=== PATIENT | female | born 1950 | race Caucasian/White ===

== ENCOUNTER 2017-09-13 10:00 | Day surgery (SDC) | payer MEDICARE ==
[~2017-09-13] VITALS: Ht 154.9 cm; Wt 81.0 kg
[~2017-09-13 10:00] MED LIST: BREO1INH3 INH; BUSP1TAB PO; CLON1TAB PO; CRES10TA32 PO; DEXI60CA2 PO; EPIP0.3I2 IM; FLUTISP; HYDR-3363 PO; LIDOCAINE 2% INJ 100 MG/5 ML SDV (FOR ANES.) As Ordered ONE; META48.54 PO; MIDAZOLAM INJ 2 MG/2 ML VIAL (J2250) As Ordered ONE; PAXI40TA10 PO; PERC7.5T11 PO; PROPOFOL 200 MG/20 ML VIAL As Ordered ONE; ROCURONIUM BROMIDE 50 MG/5 ML VIAL/SYRINGE As Ordered ONE; SUCCINYLCHOLINE 100 MG/5 ML SYRINGE (J0330) As Ordered ONE; VITA100067 PO; dexameTHASONE 4 MG/ML 1ML VIAL (J1100) As Ordered ONE; fentaNYL 250 MCG/5 ML INJECTION (J3010) As Ordered ONE
[2017-09-13] MEDS ORDERED: ePHEDrine SULFATE 25 MG/5 ML(5MG/ML) SYRINGE As Ordered ONE ×3 (10:01→14:51)
[2017-09-13] MEDS ORDERED: PHENYLephrine HCL 500 MCG/5 ML (100MCG/ML) SYRINGE (J2370) As Ordered ONE ×2 (10:01→14:56)
[2017-09-13] MEDS ORDERED: LR 1,000 ML IV ONE (10:15)
[2017-09-13] MEDS ORDERED: dexameTHASONE 4 MG/ML 1ML VIAL (J1100) IV ONE (10:15)
[2017-09-13] MEDS ORDERED: LIDOCAINE 1% MDV 20ML VIAL SC PRN (10:15)
[2017-09-13] MEDS ORDERED: GLYCOPYRROLATE INJ 0.2 MG/ML 2 ML VIAL As Ordered ONE ×2 (10:18→14:04)
[2017-09-13] MEDS ORDERED: EMLA CREAM 5GM (LIDOCAINE/PRILOCAINE) As Ordered ONE (10:31)
[2017-09-13] MEDS ORDERED: NICODIS2 TD (10:49)
[2017-09-13] MEDS ORDERED: BACITRACIN OINT 30GM As Ordered ONE (10:59)
[2017-09-13] MEDS ORDERED: LIDOCAINE W/EPINEPHRINE 1% 20ML VIAL As Ordered ONE (10:59)
[2017-09-13] MEDS ORDERED: PERCOCET 5MG/325MG TAB PO PRN ×3 (11:00→16:45)
[2017-09-13] MEDS ORDERED: IPRATROPIUM 0.5MG/ALBUTEROL 2.5MG INH SOL UD 3ML (DUONEB)(J7620) NEB ONE (11:00)
[2017-09-13] MEDS ORDERED: diazePAM 5 MG TAB PO PRN (12:15)
[2017-09-13] MEDS ORDERED: ONDANSETRON 4MG/2ML VIAL (J2405) As Ordered ONE (13:20)
[2017-09-13] MEDS ORDERED: NEOSTIGMINE 10 MG/10 ML VIAL (J2710) As Ordered ONE (14:04)
[2017-09-13] MEDS ORDERED: REMIFENTANIL 1MG 3ML VIAL As Ordered ONE (14:16)
[2017-09-13] MEDS ORDERED: ESMOLOL INJ 100MG/10ML VIAL As Ordered ONE (14:41)
[2017-09-13] MEDS ORDERED: HYDROmorphone HCL 2 MG/ML 1ML VIAL (J1170) As Ordered ONE (15:13)
[2017-09-13] MEDS ORDERED: LR 1,000 ML IV SCH (16:45)
[2017-09-13] MEDS ORDERED: MEPERIDINE INJ 25 MG/ML VIAL (J2175) IV PRN (16:45)
[2017-09-13] MEDS ORDERED: METOCLOPRAMIDE INJ 10MG/2ML VIAL (J2765) IV PRN (16:45)
[2017-09-13] MEDS ORDERED: ONDANSETRON 4MG/2ML VIAL (J2405) IV PRN (16:45)
[2017-09-13] MEDS ORDERED: fentaNYL 100 MCG/2 ML INJECTION (J3010) IV PRN (16:45)
[2017-09-13] MEDS: PERCOCET 5MG/325MG TAB PO PRN ×2 (19:02→21:07)
[2017-09-13] MEDS: ONDANSETRON 4MG/2ML VIAL (J2405) IV PRN (19:03)
[2017-09-13] MEDS: LR 1,000 ML IV SCH (19:03)
[2017-09-13] MEDS ORDERED: ROSUVASTATIN 10 MG TAB (CRESTOR) PO SCH (21:00)
[2017-09-13] MEDS ORDERED: NICOTINE 14 MG/24 HR TRANSDERMAL TD SCH (21:00)
[2017-09-13] MEDS ORDERED: clonazePAM 1 MG TAB PO SCH (21:00)
[2017-09-13 22:00] VITALS: BP 132/61
[2017-09-14] MEDS ORDERED: UNRESOLVED PATIENT OWN MED ORDER XX SCH (00:01)
[2017-09-14 00:12] VITALS: BP 159/72
[2017-09-14] MEDS: ONDANSETRON 4MG/2ML VIAL (J2405) IV PRN ×2 (00:33→08:44)
[2017-09-14 00:50] LABS: MEAN CORPUSCULAR HEMOGLOBIN 30.9 pg (27.0-33.0); MEAN CORPUSCULAR HGB CONC 34.3 g/dl (32.0-36.5); MEAN CORPUSCULAR VOLUME 90.3 fl (80.0-96.0); PLATELET COUNT, AUTOMATED 313 10^3/uL (150-450); RED CELL DISTRIBUTION WIDTH 14.5 % (11.5-14.5); WHITE BLOOD COUNT 12.2 10^3/uL (4.0-10.0)
[2017-09-14] MEDS ORDERED: METOCLOPRAMIDE INJ 10MG/2ML VIAL (J2765) IV PRN (01:00)
[2017-09-14] MEDS ORDERED: IPRATROPIUM 0.5MG/ALBUTEROL 2.5MG INH SOL UD 3ML (DUONEB)(J7620) NEB PRN (01:00)
[2017-09-14] MEDS ORDERED: PERCOCET 5MG/325MG TAB PO ONE (01:00)
--- NOTE | 2017-09-14 01:09 | CR.PDOC ---
[facility] Consultation Consultation DATE OF CONSULTATION: Sep 13, 2017 at 10:00 REFERRING PROVIDER: Jabier Reid M.D. ATTENDING PHYSICIAN: Dr. Joya of ENT REASON FOR CONSULTATION/CHIEF COMPLAINT: . Chest Pain HISTORY OF PRESENT ILLNESS: . 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 The hospitalist service was consulted for evaluation of the patient's chest pain. The patient describes her pain as sharp, 10 out of 10 in intensity, and on the left side of the chest. She does state that pressing on the chest wall does exacerbate her pain. She denies any complaints of shortness of breath or palpitations. I did speak to the patient's daughter at the bedside, who states that the patient has had chest pain like this in the past, which was at times attributed to her underlying anxiety. She has no history of coronary artery disease, and the patient's daughter said that she did have a stress test approximately 18 months ago which did not reveal any acute findings in the [place], [place] area. ALLERGIES: Please see below. HOME MEDICATIONS: Please see below. PAST MEDICAL HISTORY: As noted in HPI. SOCIAL HISTORY: Smoked 2+ PPD of Tobacco for 30+ years REVIEW OF SYSTEMS: 10 point review of systems negative unless otherwise specified in HPI. PHYSICAL EXAMINATION: VITAL SIGNS: Please see below. GENERAL APPEARANCE: . Awake, alert HEENT: . Patient's face covered with surgical dressing along the sides with the drain in place following recent surgery RESPIRATORY: . Clear to auscultation bilaterally CARDIOVASCULAR: . Normal rate, normal rhythm ABDOMEN: . Soft, nontender, nondistended EXTREMITIES: . No erythema or tenderness noted LABORATORY DATA: Please see below. 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 Ms. Coker will be followed by Dr. Reyes of the hospitalist service starting 09/14/17 @ 7am. Vital Signs/I&O Vital Signs Date Time Temp Pulse Resp B/P (MAP) Pulse Ox O2 Delivery O2 Flow Rate FiO2 09/14/17 01:00 18 Room Air 09/13/17 22:00 99.0 99 132/61 (84) 94 09/13/17 18:15 2 Laboratory Data Labs 24H Laboratory Tests 2 09/14/17 00:43: Nucleated Red Blood Cells % (auto) 0.0 CBC/BMP Laboratory Tests 09/14/17 00:43 Red Blood Count 4.01, Mean Corpuscular Volume 90.3, Mean Corpuscular Hemoglobin 30.9, Mean Corpuscular Hemoglobin Concent 34.3, Red Cell Distribution Width 14.5 Allergies Coded Allergies: Atorvastatin (Verified Allergy, Unknown, 09/10/17) Celecoxib (Verified Allergy, Unknown, 09/10/17) Ciprofloxacin (Verified Allergy, Unknown, 09/10/17) Codeine (Verified Allergy, Unknown, 09/10/17) Hydrocodone (Verified Allergy, Unknown, 09/10/17) Metronidazole (Verified Allergy, Unknown, 09/10/17) Morphine (Verified Allergy, Unknown, 09/10/17) Home Medications Scheduled (Epipen 2-Broderick) 0.3 Mg/0.3 Ml Inj, 0.3 MG IM PRN, (Reported) (Dexilant) 60 Mg Cap, PO DAILY, (Reported) Buspirone HCl (Buspirone HCl) 7.5 Mg Tab, 7.5 MG PO BID, (Reported) Clonazepam (Clonazepam) 1 Mg Tab, 0.5 MG PO BID, (Reported) Fluticasone/Vilanterol (Breo Ellipta 200-25 Mcg/INH) 1 Inh Inh, 1 PUFF INH DAILY , (Reported) Oxycodone/Acetaminophen (Percocet 7.5-325 mg) 1 Tab Tab, 1 TAB PO QID, (Reported ) Paroxetine Hydrochloride (Paxil) 40 Mg Tab, 40 MG PO DAILY, (Reported) Psyllium (Metamucil) 48.57 % Pow, 1 PKT PO DAILY, (Reported) Rosuvastatin (Crestor) 10 Mg Tab, 10 MG PO QHS, (Reported) Scheduled PRN Fluticasone Propionate (Fluticasone Propionate) 50 Mcg/Act Spr, NA PRN PRN for NASAL CONGESTION, (Reported) Hydroxyzine HCl (Hydroxyzine HCl) 25 Mg Tab, PO TIDP PRN for ANXIETY/AGITATION, (Reported) Nicotine (Nicotine Step 2) 14 Mg/24 Hr Dis, 14 MG TD DAILY PRN for ANXIETY/ AGITATION, (Reported) JABIER REID MD Sep 14, 2017 01:09
[2017-09-14 01:17] LABS: ANION GAP 6 MEQ/L (8-16); BLOOD UREA NITROGEN 9 MG/DL (7-18); CALCIUM LEVEL 9.1 MG/DL (8.8-10.2); CARBON DIOXIDE LEVEL 28 MEQ/L (21-32); CHLORIDE LEVEL 106 MEQ/L (98-107); CREATININE FOR GFR 0.79 MG/DL (0.55-1.02); GLOMERULAR FILTRATION RATE > 60.0 (>45); GLUCOSE, FASTING 121 MG/DL (80-110); POTASSIUM SERUM 3.9 MEQ/L (3.5-5.1); SODIUM LEVEL 140 MEQ/L (136-145)
--- NOTE | 2017-09-14 01:40 | REPUSA ---
CLINICAL HISTORY: Chest pain. COMMENTS: AP view of chest reveals mild bilateral basilar atelectatic pulmonary changes. The cardiac silhouette is enlarged. The mediastinum and pulmonary vessels appear normal. Aorta is tor tuous. Degenerative changes are noted in the thoracic spine. IMPRESSION: Bibasilar atelectatic pulmonary changes. Enlarged cardiac silhouette. Tortuous aorta. Thank you for your kind referral of this patient.
[2017-09-14 02:00] VITALS: BP 111/60
[2017-09-14] MEDS: LR 1,000 ML IV SCH ×2 (02:45→12:45)
[2017-09-14 06:00] VITALS: BP 136/63
[2017-09-14] MEDS: PERCOCET 5MG/325MG TAB PO PRN ×2 (08:22→12:29)
[2017-09-14] MEDS ORDERED: VITAMIN D 1,000 INTERNATIONAL UNITS TABLET PO SCH (09:00)
[2017-09-14] MEDS ORDERED: GABAPENTIN 300 MG CAP PO SCH (09:00)
[2017-09-14] MEDS ORDERED: PARoxetine 20 MG TAB PO SCH (09:00)
[2017-09-14] MEDS ORDERED: hydrOXYzine 25 MG TAB PO SCH (09:00)
[2017-09-14 10:00] VITALS: BP 144/66
--- NOTE | 2017-09-14 10:05 | ECGEPIP ---
Stationary ECG Study [facility] Test Date: 2017-09-14 Pat Name: PAULINO HERNANDEZ Department: Room: [place] [address] Gender: F Math Professor: : 1950 Requested By: SAHRA CAUSEY Order Number: [id number] Reading MD: Grey Maciel Measurements Intervals [place] Rate: 87 P: 62 IL: 170 QRS: -7 QRSD: 97 T: 29 QT: 374 QTc: 451 Interpretive Statements SINUS RHYTHM Leftward axis. No prior ECG available for comparison at the time of interpretation. Electronically Signed On 09-14-2017 10:05:28 EDT by Grey Maciel
[2017-09-14 14:00] VITALS: BP 130/62
--- NOTE | 2017-10-10 13:31 | RO ---
DATE OF PROCEDURE: 09/14/2017 PREPROCEDURE DIAGNOSIS: Left parotid mass. POSTPROCEDURE DIAGNOSIS: Left parotid mass. PROCEDURE: Total parotidectomy with intraoperative nerve monitoring. SURGEON: Dr. Yosef Joya DIRECTOR OF SOFTWARE ENGINEERING: Dr. Odin Nice ANESTHESIA: General without use of the paralytic. INTRAOPERATIVE FINDINGS: Mass at the left parotid tail deep to the facial nerve branches. CLINICAL PREAMBLE: This 67-year-old woman has had a PET scan performed as part of the cancer surveillance that revealed hypermetabolic activity at the left parotid tail. 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 Management options including surgery listed had been discussed. Risks of surgery including facial nerve paralysis, recurrent disease, wound dehiscence, sialocele, fistula, numbness of the skin and ear lobe as well as Bishop syndrome had been discussed in great detail with the patient as well. She understood and consented to the procedure. DESCRIPTION OF PROCEDURE: The patient was identified in preoperative holding and had the left face dotted. She was brought to the operating room in stable condition. In the supine position on the operating table, she received general anesthesia, followed by oral endotracheal tube intubation without incident. No further paralytic agent was used throughout the remainder of the case. The electrodes were placed over the sternal region. Test electrodes were placed over the left lateral [place] and left oral commissure area. They were connected to the [employer] 3.0 monitor. Good electrode signals were obtained. A modified Maurice incision was outlined over the left preauricular and left upper neck region. The skin was then infiltrated with 1% lidocaine with 1:100,000 epinephrine. The skin was then developed down to the parotid fascia. The tragal pointer was identified. The posterior belly of the digastric was also dissected and identified. Additional tissue of the parotid gland was mobilized off of the upper region of the left sternocleidomastoid muscle. The pes anserinus of the left facial nerve was successfully identified at the level of the region 1 cm anterior inferior to the tragal pointer. The upper and lower branches were then carefully identified and dissected. Dissection was then proceeded inferiorly towards the level of the left parotid tail where the mass was located. It was noted the mass was deep to the lower branches of the facial nerve. The facial nerve branches were carefully mobilized and dissected off from the underlying tumor. The mass was then successfully excised with about 1 cm margin all around. Hemostasis was achieved by using bipolar electrocautery. A 7 flat J-P drain was then inserted into the wound bed. The skin incision was closed in two layers using Vicryl for the deep layer and #5-0 Prolene for the final layer of closure. The facelift dressing was then applied. At the end of the procedure, sponge and instrument counts were correct. No complications noted. Estimated blood loss was less than 50 mL. The patient's nerve was found to be stimulatable at the end of the case. General anesthesia was reversed and patient was extubated and brought to the recovery room in stable condition. In the recovery area, the patient exhibited full closure of the left eyelid.
== END 2017-09-14 15:24 | disposition home or self-care (01) ==
LOC: M SDC 10:00 → M MSPAV 18:30 → M SDC 09-14 15:24
PROVIDERS: ATTEND Otolaryngology
DX: D11.0 Benign neoplasm of parotid gland (principal); C84.48 Peripheral T-cell lymphoma, not elsewhere classified, lymph nodes of multiple sites; C44.91 Basal cell carcinoma of skin, unspecified; M54.2 Cervicalgia; J44.9 Chronic obstructive pulmonary disease, unspecified; I10 Essential (primary) hypertension; K21.9 Gastro-esophageal reflux disease without esophagitis; K58.9 Irritable bowel syndrome, unspecified; K52.9 Noninfective gastroenteritis and colitis, unspecified; B96.20 Unspecified Escherichia coli [E. coli] as the cause of diseases classified elsewhere; R29.898 Other symptoms and signs involving the musculoskeletal system; M12.9 Arthropathy, unspecified; M81.0 Age-related osteoporosis without current pathological fracture; F41.9 Anxiety disorder, unspecified; F32.9 Major depressive disorder, single episode, unspecified; Z86.73 Personal history of transient ischemic attack (TIA), and cerebral infarction without residual deficits; Z87.442 Personal history of urinary calculi; N39.0 Urinary tract infection, site not specified; Z87.891 Personal history of nicotine dependence; Z90.710 Acquired absence of both cervix and uterus; Z79.899 Other long term (current) drug therapy; Z88.1 Allergy status to other antibiotic agents; Z88.5 Allergy status to narcotic agent; Z88.8 Allergy status to other drugs, medicaments and biological substances
CPT/HCPCS: 36415; 42415; 71010; 80048; 82550; 82553; 84484; 85027; 88307; 93005; 96374; 96375; J1100; J1170; J2250; J2370; J2405; J2710; J2765; J3010